=== PATIENT | male | born 1980 | race Caucasian/White ===

== ENCOUNTER 2016-10-27 10:43 | Emergency (ER) | payer SELFPAY ==
[~2016-10-27] VITALS: Ht 175.3 cm; Wt 79.4 kg
[2016-10-27 11:05] VITALS: BP 139/99
--- NOTE | 2016-10-27 11:22 | NUR ---
Patient ambulated to bed 7. RN evaluating patient at bedside.
[2016-10-27] MEDS ORDERED: KETOROLAC 60 MG/2 ML VIAL IM ONE (11:40)
--- NOTE | 2016-10-27 12:30 | NUR ---
Note janeylast in EDM - 10/27/16 at 1816 by [facility] Patient discharged with v/s stable. Written and verbal after care instructions given and explained. Patient alert, oriented and verbalized understanding of instructions. Ambulatory with steady gait. All questions addressed prior to discharge. ID band removed. Patient advised to follow up with PMD. Rx of MOTRIN, NORCO,KEFLEX & BACTRIM given. Patient educated on indication of medication including possible reaction and side effects. Opportunity to ask questions provided and answered.
--- NOTE | 2016-10-27 12:41 | NUR ---
Note undone in EDM - 10/27/16 at 1815 by [email or web address] BUG BITE TO RIGHT ELBOW X2 DAYS WITH INFLAMMATION. P PT STATES [] . DENIES N/V/D; AAOX4 WITH EVEN AND STEADY GAIT; LUNGS CLEAR BL; HR EVEN AND REGULAR; PT DENIES ANY FEVER, CP, SOB, OR COUGH AT THIS TIME; PATIENT STATES PAIN OF 8/10 AT THIS TIME; VSS; PATIENT POSITIONED FOR COMFORT; HOB ELEVATED; BEDRAILS UP X2; BED DOWN. ER MD MADE AWARE OF PT STATUS.
[2016-10-27 13:30] VITALS: BP 127/89
--- NOTE | 2016-10-27 13:30 | NUR ---
Patient discharged with v/s stable. Written and verbal after care instructions given and explained. Patient alert, oriented and verbalized understanding of instructions. Ambulatory with steady gait. All questions addressed prior to discharge. ID band removed. Patient advised to follow up with PMD. Rx of MOTRIN, NORCO,KEFLEX & BACTRIM given. Patient educated on indication of medication including possible reaction and side effects. Opportunity to ask questions provided and answered.
== END 2016-10-27 13:30 | disposition home or self-care (01) ==
LOC: MED 10:43
DX: L03.113 Cellulitis of right upper limb (principal); F17.200 Nicotine dependence, unspecified, uncomplicated
CPT/HCPCS: 96372; 99283; J1885